=== PATIENT | male | born 1950 | race Caucasian/White ===

== ENCOUNTER → 2017-08-04 | Outpatient (CLI) | payer OTHER | LOC: RAD 12:57 | DX: J44.9 Chronic obstructive pulmonary disease, unspecified (principal) ==

== ENCOUNTER → 2017-10-04 | Outpatient (CLI) | payer OTHER | LOC: RAD 11:57 | DX: R06.00 Dyspnea, unspecified (principal) ==

== ENCOUNTER → 2017-10-06 | Outpatient (CLI) | payer OTHER ==
--- NOTE | ~2017-10-06 | 2DMMODE ---
[facility] [place] [address] 2 D/M-MODE ECHOCARDIOGRAM Name: SYEDA PRASAD Room #: REG [facility]#: [id number] Admission: 10/06/17 Attend Phys: Jhon Carvalho MD Discharge: Date of : 50 Date of Service: 10/06/17 [facility] Report #: [id number] THIS REPORT FOR: //name// APPROVED REPORT Study performed: 10/06/2017 09:09:38 EXAM: Comprehensive 2D, Doppler, and color-flow Echocardiogram Patient Location: Echo lab Status: routine BSA: 2.11 BP: 158/92 mmHg Rhythm: NSR Other Information Study Quality: Adequate Technically limited study due to lung disease. Indications Dyspnea Hx: COPD 2D Dimensions RVDd: 37.27 mm LVEF(%): 37.24 (>50%) IVSd: 8.87 (7-11mm) LVOT Diam: 20.85 (18-24mm) LVDd: 50.74 mm PWd: 9.47 (7-11mm) LVDs: 41.60 (25-40mm) Aortic Root: 34.46 mm IVC: 14.00 mm Asencio's LVEF: 37.24 % Volumes Left Atrial Volume (Systole) Single Plane 4CH: 21.36 mL Single Plane 2CH: 24.82 mL LA ESV Index: 13.00 mL/m2 Aortic Valve AoV Peak Manolo.: 1.15 m/s AO Peak Gr.: 5.33 mmHg LVOT Max P.98 mmHg LVOT Max V: 0.86 m/s BRENDON Vmax: 2.55 cm2 Mitral Valve [facility] [address] [place] [address] 2 D/M-MODE ECHOCARDIOGRAM Name: SYEDA PRASAD Room #: REG [facility]#: [id number] Admission: 10/06/17 Attend Phys: Jhon Carvalho MD Discharge: Date of : 50 Date of Service: 10/06/17 [facility] Report #: [id number] E/A Ratio: 0.6 MV Decel. Time: 269.88 ms MV E Max Manolo.: 0.45 m/s MV A Manolo.: 0.81 m/s MV PHT: 78.26 ms IVRT: 78.43 ms Pulmonary Valve PV Peak Manolo.: 0.78 m/s PV Peak Gr.: 2.46 mmHg Pulmonary Vein P Vein S: 0.44 m/s P Vein A: 0.27 m/s P Vein D: 0.29 m/s P Vein A Dur.: 106.1 msec P Vein S/D Ratio: 1.52 Left Ventricle The left ventricle is normal size. There is normal left ventricular wall thickness. The left ventricular systolic function is normal. LVEF is 50-55%. Grade II - pseudonormal filling dynamics. Right Ventricle The right ventricle is normal size. The right ventricular systolic function is normal. Atria The left atrium size is normal. The right atrium size is normal. Aortic Valve The aortic valve is normal in structure. No aortic regurgitation is present. There is no aortic valvular stenosis. Mitral Valve The mitral valve is normal in structure. Trace mitral regurgitation. No evidence of mitral valve stenosis. Tricuspid Valve The tricuspid valve is normal in structure. There is no tricuspid valve regurgitation noted. Pulmonic Valve Pulmonic valve is not well visualized. There is no pulmonic valvular regurgitation. Great Vessels The aortic root is normal in size. IVC is normal in size and [facility] [address] [place] [address] 2 D/M-MODE ECHOCARDIOGRAM Name: LAMBSBURGSYEDA TUNNEL HILL [id number] Admission: 10/06/17 Attend Phys: Jhon Carvalho MD Discharge: Date of : 50 Date of Service: 10/06/17 [facility] Report #: [id number] collapses >50% with inspiration. Pericardium There is no pericardial effusion. <Conclusion> The left ventricle is normal size. LVEF is 50-55%. The aortic valve is normal in structure. The mitral valve is normal in structure. Trace mitral regurgitation. The tricuspid valve is normal in structure. Pulmonic valve is not well visualized. There is no pericardial effusion. <ELECTRONICALLY SIGNED> By: Russ Yip MD 10/06/17 [id number] Russ Yip MD /INF
== END ==
LOC: CV 08:40
DX: J44.9 Chronic obstructive pulmonary disease, unspecified (principal)

== ENCOUNTER → 2019-03-01 | Outpatient (CLI) | payer BC, OTHER | LOC: RAD 08:36 | DX: J44.9 Chronic obstructive pulmonary disease, unspecified (principal); D71 Functional disorders of polymorphonuclear neutrophils ==

== ENCOUNTER → 2019-06-21 | Outpatient (CLI) | payer BC, OTHER | LOC: RAD 10:09 | DX: J84.10 Pulmonary fibrosis, unspecified (principal) ==

== ENCOUNTER → 2021-05-08 | Outpatient (CLI) | payer BC, OTHER | LOC: RAD 12:25 | PROVIDERS: ATTEND Internal Medicine Pulmonary Disease | DX: J44.9 Chronic obstructive pulmonary disease, unspecified (principal); R05 Cough ==